=== PATIENT | female | born 1965 | race Caucasian/White ===

== ENCOUNTER 2017-02-24 14:15 | Emergency (ER) | payer OTHER, BC ==
[2017-02-24 14:19] VITALS: BP 146/81; PULSE 80; TEMP 98; BMI 37.5
--- NOTE | 2017-02-24 14:39 | PDOC ---
History of Present Illness - General Chief Complaint: Pain Stated Complaint: LEG PAIN Time Seen by Provider: 02/24/17 14:23 History Source: Patient Exam Limitations: No Limitations - History of Present Illness Initial Comments: 51 y/o afebrile female with PMH HTN, GERD c/o right leg pain. The patient states last night she woke up with a cramping/squeezing type of pain in her right front thigh. She states she wasn't sure if she should stretch it out but it was painful to extend her leg. She states it went away in a few minutes. She states she had a second episode this afternoon. She denies cough, hemoptysis, CP, SOB, calf pain, redness/warmth to affected leg, smoking history, recent travel, control use. Past History - Past Medical History Allergies/Adverse Reactions: Allergies Allergy/AdvReac Type Severity Reaction Status Date / Time No Known Drug Allergies Allergy Verified 02/24/17 14:18 Home Medications: Ambulatory Orders Omeprazole 40 mg PO DAILY 02/24/17 Valsartan 80 mg PO DAILY 02/24/17 Anemia: No Asthma: No Cancer: No Cardiac Disorders: No CVA: No COPD: No CHF: No Dementia: No Diabetes: No GI Disorders: Yes (REFLUX) Disorders: Yes (PROTEINURIA) HTN: Yes Hypercholesterolemia: No Liver Disease: No Seizures: No Thyroid Disease: No - Surgical History Abdominal Surgery: No Appendectomy: No Cardiac Surgery: No Cholecystectomy: Yes Lung Surgery: No Neurologic Surgery: No Orthopedic Surgery: Yes (RT ANKLE W/SCREWS-1985) - Psycho/Social/Smoking Cessation Hx Anxiety: No Suicidal Ideation: No Smoking History: Never smoked Hx Alcohol Use: No Drug/Substance Use Hx: No Substance Use Type: None Hx Substance Use Treatment: No Review of Systems - Review of Systems Able to Perform ROS?: Yes Constitutional: No: Symptoms Reported HEENTM: No: Symptoms Reported Respiratory: No: Symptoms reported Cardiac (ROS): No: Symptoms Reported Musculoskeletal: Yes: Muscle Pain (Right thigh pain) Integumentary: No: Symptoms Reported *Physical Exam - Vital Signs Last Vital Signs Temp Pulse Resp BP Pulse Ox 98.0 F 80 20 146/81 98 02/24/17 14:16 02/24/17 14:16 02/24/17 14:16 02/24/17 14:16 02/24/17 14:16 - Physical Exam General Appearance: Yes: Nourished, Other (Normal gait). No: Apparent Distress Respiratory/Chest: positive: Lungs Clear, Normal Breath Sounds. negative: Chest Tender, Respiratory Distress, Accessory Muscle Use, Labored Respiration Cardiovascular: positive: Regular Rhythm, Regular Rate Musculoskeletal: positive: Normal Inspection. negative: Decreased Range of Motion, Muscle Spasm Extremity: positive: Normal Capillary Refill, Normal Inspection, Normal Range of Motion, Tender (Pain reproduced with palpation of right vastus medialis muscle. No erythema, warmth, edema to affected area. No calf pain with palpation, erythema, warmth. Negative Avis's sign b/l. ). negative: Coldness , Cyanosis, Swelling, Calf Tenderness, Erythema, Inflammation Medical Decision Making - Medical Decision Making A/P: 51 y/o female with symptoms of muscle cramping/charley horse. I reassured her and suggested she stretch multiple times per day. I also suggested increase in her fluid intake, especially water. Provided her with precautions for symptoms of blood clots and suggested she return to the ER with any worsening or concerning symptoms. THe patient verbalizes understanding of all instructions, has no further questions and is awaiting discharge. *DC/Admit/Observation/Transfer Diagnosis at time of Disposition: Leg pain, right, Charleyhorse - Discharge Dispostion Disposition: HOME Condition at time of disposition: Good - Referrals Referrals: Mary Beth Kapadia MD [Primary Care Provider] - - Patient Instructions Printed Discharge Instructions: DI for Leg Pain, DI for Nocturnal Leg Cramps, Stretching Routine Before Bedtime May Decrease Nighttime Leg Cramps Additional Instructions: Discharge Instructions: -Drink at least 64oz of water daily -Stretch prior to going to bed -If you develop a cramp, stretch out the muscle and massage the muscle to help relieve the pain -Return to the ER with any worsening or concerning symptoms
== END 2017-02-24 14:45 | disposition home or self-care (01) ==
LOC: JERFT 14:15
DX: M62.831 Muscle spasm of calf (principal); K21.9 Gastro-esophageal reflux disease without esophagitis; I10 Essential (primary) hypertension
CPT/HCPCS: 99281-25

== ENCOUNTER 2018-12-16 04:43 | Day surgery (SDC) | payer OTHER, BC ==
[2018-12-14 14:53] VITALS: BMI 36.8
[2018-12-16] MEDS ORDERED: PROPOFOL 20 ML ONE (07:38)
[2018-12-16] MEDS ORDERED: fentaNYL CITRATE 250 MCG/5 ML VIAL ONE (07:38)
[2018-12-16] MEDS ORDERED: MIDAZOLAM HCL 2 MG/2 ML SINGLE DOSE VIAL ONE (07:39)
--- NOTE | 2018-12-16 07:48 | HP ---
History & Physical Update - Physical Physical: No Change - Assessment Assessment: No Change - Plan Plan: No Change (H&P reviwed, no cahanges. for hysteroscopy, D&C)
--- NOTE | 2018-12-16 08:13 | HP ---
Past Medical History - Primary Care Physician PCP:: Jason Duke - Admission Chief Complaint: irregular menses, EM polyp History of Present Illness: 52 yo f with hx of irregular menses , tvs , em polyp admitted for hysteroscopy, D&C polypectomy,risks and benefit of procedure discussed. History Source: Patient Limitations to Obtaining History: No Limitations - Past Medical History Cardiovascular: Yes: HTN - Past Surgical History Hx Transabdominal Cerclage: No - Smoking History Smoking history: Former smoker Have you smoked in the past 12 months: No If you are a former smoker, when did you quit?: 1994 - Alcohol/Substance Use Hx Alcohol Use: No - Social History Usual Living Arrangement: Yes: With Spouse Home Medications - Allergies Allergies/Adverse Reactions: Allergies Allergy/AdvReac Type Severity Reaction Status Date / Time atorvastatin AdvReac Verified 12/16/18 06:56 - Home Medications Home Medications: Ambulatory Orders Omeprazole 40 mg PO DAILY 02/24/17 L.acidoph,Paracasei, B.lactis [Probiotic] 1 each PO DAILY 12/14/18 Losartan Potassium [Cozaar] 100 mg PO DAILY 12/14/18 Ibuprofen [Motrin -] 600 mg PO TID #21 tablet 12/16/18 Review of Systems - Review of Systems Constitutional: reports: No Symptoms Eyes: reports: No Symptoms HENT: reports: No Symptoms Neck: reports: No Symptoms Cardiovascular: reports: No Symptoms Respiratory: reports: No Symptoms Gastrointestinal: reports: No Symptoms Genitourinary: reports: Vaginal Bleeding Breasts: reports: No Symptoms Reported Musculoskeletal: reports: No Symptoms Integumentary: reports: No Symptoms Neurological: reports: No Symptoms Endocrine: reports: No Symptoms Hematology/Lymphatic: reports: No Symptoms Psychiatric: reports: No Symptoms Physical Exam-[employer] Vital Signs: Vital Signs Temperature 97.6 F 12/16/18 06:44 Pulse Rate 74 12/16/18 06:44 Respiratory Rate 18 12/16/18 06:44 Blood Pressure 132/85 12/16/18 06:44 O2 Sat by Pulse Oximetry (%) 99 12/16/18 06:45 Constitutional: Yes: Well Nourished, No Distress, Calm Eyes: Yes: WNL, Conjunctiva Clear, EOM Intact HENT: Yes: WNL, Atraumatic, Normocephalic Neck: Yes: WNL, Supple, Trachea Midline Cardiovascular: Yes: WNL, Regular Rate and Rhythm Respiratory: Yes: WNL, Regular, CTA Bilaterally Gastrointestinal: Yes: WNL ...Rectal Exam: Yes: WNL Renal/: Yes: WNL Vaginal Exam: Yes: Normal Cervix: Yes: Normal Uterus: Yes: Normal Adnexa: Not Palpable: Left, Right Breast(s): Yes: WNL Musculoskeletal: Yes: WNL Extremities: Yes: WNL Integumentary: Yes: WNL Neurological: Yes: WNL, Alert, Oriented ...Motor Strength: WNL Psychiatric: Yes: WNL, Alert, Oriented Problem List - Problem (1) Metrorrhagia Code(s): N92.1 - EXCESSIVE AND FREQUENT MENSTRUATION WITH IRREGULAR CYCLE (2) Endometrial polyp Code(s): N84.0 - POLYP OF CORPUS UTERI Assessment/Plan hysteroscopy, EM polypectomy
[2018-12-16] MEDS ORDERED: ONDANSETRON 4 MG/2 ML VIAL IVPUSH PRN ×2 (08:45→08:56)
[2018-12-16] MEDS ORDERED: ELECTROLYTE-148 SOLN 1,000 ML IV SCH (08:45)
[2018-12-16] MEDS ORDERED: IBUPROFEN 600 MG TABLET (FP) PO PRN (08:45)
[2018-12-16] MEDS ORDERED: oxyCODONE HCL 5 MG TABLET PO PRN ×2 (08:45→08:56)
[2018-12-16] MEDS ORDERED: IBUPROFEN 800 MG/8 ML IJ IVPB PRN (08:45)
[2018-12-16] MEDS ORDERED: ACETAMINOPHEN 325 MG TABLET (FP) PO PRN (08:56)
[2018-12-16] MEDS ORDERED: LACTATED RINGERS SOLUTION 1,000 ML IV SCH (09:00)
[2018-12-16] MEDS ORDERED: ACETAMINOPHEN INJECTION 100 ML IVPB ONE (09:07)
[2018-12-16] MEDS ORDERED: ONDANSETRON 4 MG/2 ML VIAL ONE ×2 (09:15→11:12)
[2018-12-16] MEDS ORDERED: ACETAMINOPHEN 1000 MG/100 ML VIAL (NON FORMULARY) IVPB ONE (09:45)
[2018-12-16] MEDS ORDERED: ONDANSETRON 4 MG/2 ML VIAL IVPB ONE (11:20)
[2018-12-16 12:36] VITALS: PULSE 73; TEMP 97.9
[2018-12-16 12:38] VITALS: BP 130/70
--- NOTE | 2018-12-19 16:15 | PATH ---
Surgical Pathology Report Patient Name: GAURAV VALLEJO [facility]. Rec. #: [id number] /Age/Gender: 1965 (Age: 52) / F Account: [id number] Location: [facility] Taken: 12/16/2018 Received: 12/16/2018 Reported: 12/19/2018 Physicians: Jason Duke M.D. Specimen(s) Received A: ENDOMETRIAL CURETTINGS B: ENDOMETRIAL POLYP Clinical History Menorrhagia Final Diagnosis A. ENDOMETRIAL CURETTINGS: SIMPLE ENDOMETRIAL HYPERPLASIA WITHOUT ATYPIA. FOCAL STROMAL BREAKDOWN PRESENT. SEPARATE FRAGMENTS OF ENDOMETRIAL POLYP. SEPARATE PROLIFERATIVE ENDOMETRIUM. ENDOCERVICAL TISSUE WITH SQUAMOUS METAPLASIA. B. ENDOMETRIAL POLYP, EXCISION: SIMPLE ENDOMETRIAL HYPERPLASIA WITHOUT ATYPIA. FRAGMENTS OF ENDOMETRIAL POLYP. SEPARATE PROLIFERATIVE ENDOMETRIUM. Electronically Signed Chad Silva M.D. Gross Description A. Received in formalin labeled "endometrial curettings," is a 4.5 x 4.0 x 0.3 cm aggregate of boateng red soft tissue fragments admixed with blood clot. The formalin is filtered and the specimen is entirely submitted in 4 cassettes. B. Received in formalin labeled "endometrial polyp," is a 2.0 x 1.5 x 0.3 cm aggregate of pink-boateng, irregular to polypoid portions of soft tissue. The specimen is submitted in toto in one cassette. 12/16/201812/16/2018
--- NOTE | 2018-12-20 15:33 | OP ---
DATE OF OPERATION: 12/16/2018 PREOPERATIVE DIAGNOSIS: Menorrhagia, endometrial polyp. POSTOPERATIVE DIAGNOSIS: Menorrhagia, endometrial polyp. PROCEDURE: Hysteroscopy, dilation and curettage, and polypectomy. SURGEON: Jason Duke MD ANESTHESIA: General. ESTIMATED BLOOD LOSS: About 60 mL. DESCRIPTION OF PROCEDURE: The patient was taken to the operating room. Under adequate general anesthesia, examination under anesthesia revealed external genitalia to be normal. Vagina was normal. Cervix was clean. No gross lesion. Uterus was prominent and enlarged. No adnexal masses were palpable. Then with a weighted speculum in the vagina, anterior lip of the cervix was grasped with a single-tooth tenaculum. Uterine cavity was sounded to 10 cm. Then the cervix was slightly dilated and hysteroscope was introduced. Visualization of the endocervical canal appeared to be normal. Endometrium appeared to be irregular with a polyp, which was seen in the fundal area of the uterus. The rest of the endometrium was patchy and irregular and hypertrophic. No other abnormality was seen. Both cornual regions were identified. Then polyp was removed. Then hysteroscope was withdrawn. Endometrium was curetted. Large amounts of tissue were obtained. The patient tolerated the procedure well and left the OR in good condition. Micheline [id number]
== END 2018-12-16 12:25 | disposition home or self-care (01) ==
LOC: JASU-SURG 04:43
PROVIDERS: ATTEND Obstetrics & Gynecology
PROC: 0UJD8ZZ Inspection of Uterus and Cervix, Via Natural or Artificial Opening Endoscopic (ICD-10-PCS; 2018-12-16)
PROC: 0UB97ZX Excision of Uterus, Via Natural or Artificial Opening, Diagnostic (ICD-10-PCS; principal; 2018-12-16 08:00)
PROC: 0UDB7ZX Extraction of Endometrium, Via Natural or Artificial Opening, Diagnostic (ICD-10-PCS; 2018-12-16 08:00)
DX: N92.0 Excessive and frequent menstruation with regular cycle (principal); N84.0 Polyp of corpus uteri
CPT/HCPCS: 84703; 88305-TC; 94760; J0131

== ENCOUNTER 2020-07-30 04:40 | Day surgery (SDC) | payer OTHER, BC ==
[2020-07-29 13:06] VITALS: BMI 37.2
[2020-07-30] MEDS ORDERED: MIDAZOLAM HCL 2 MG/2 ML SINGLE DOSE VIAL ONE (08:33)
[2020-07-30] MEDS ORDERED: oxyCODONE HCL 5 MG TABLET PO PRN ×2 (08:45→10:12)
[2020-07-30] MEDS ORDERED: ONDANSETRON 4 MG/2 ML VIAL IVPUSH PRN ×2 (08:45→10:12)
[2020-07-30] MEDS ORDERED: LACTATED RINGERS SOLUTION 1,000 ML IV SCH (08:45)
[2020-07-30] MEDS ORDERED: IBUPROFEN 800 MG/8 ML IJ IVPB PRN (10:12)
[2020-07-30] MEDS ORDERED: IBUPROFEN 600 MG TABLET (FP) PO PRN (10:12)
[2020-07-30] MEDS ORDERED: ELECTROLYTE-148 SOLN 1,000 ML IV SCH (10:15)
[2020-07-30 12:25] VITALS: BP 127/79; PULSE 68; TEMP 97.1
== END 2020-07-30 11:55 | disposition home or self-care (01) ==
LOC: JASU-SURG 04:40
PROVIDERS: ATTEND Obstetrics & Gynecology
PROC: 0UJD8ZZ Inspection of Uterus and Cervix, Via Natural or Artificial Opening Endoscopic (ICD-10-PCS; 2020-07-30)
PROC: 0UB97ZX Excision of Uterus, Via Natural or Artificial Opening, Diagnostic (ICD-10-PCS; principal; 2020-07-30 09:00)
PROC: 0UDB7ZX Extraction of Endometrium, Via Natural or Artificial Opening, Diagnostic (ICD-10-PCS; 2020-07-30 09:00)
DX: N95.0 Postmenopausal bleeding (principal); N84.0 Polyp of corpus uteri
CPT/HCPCS: 84703; 86850; 86900; 86901; 88305-TC; 94760

== ENCOUNTER 2023-10-18 16:48 | Observation (INO) | payer OTHER, BC ==
[2023-10-18] MEDS: LACTATED RINGERS SOLUTION 1000 ML INFUS.BAG IV ONE (21:22)
[2023-10-18 21:25] LABS: BASO % 0.9 % (0-2.0); EOS % 2.5 % (0-4.5); HEMATOCRIT 38.7 % (32.4-45.2); HEMOGLOBIN 12.7 GM/dL (10.7-15.3); LYMPH % 35.4 % (8-40); MCH 28.2 pg (25.7-33.7); MCHC 32.7 g/dl (32.0-36.0); MEAN CELL VOLUME 86.3 fl (80-96); MEAN PLT VOLUME 8.1 fl (7.5-11.1); MONO % 7.6 % (3.8-10.2); NEUT % 53.6 % (42.8-82.8); PLATELET COUNT 286 10^3/uL (134-434); RBC 4.49 M/mm3 (3.60-5.2); RDW 15.5 % (11.6-15.6); WHITE BLOOD COUNT 7.1 K/mm3 (4.0-10.0)
[2023-10-18 21:33] LABS: INR 1.04 (0.83-1.09); PROTHROMBIN TIME (PATIENT) 12.1 SEC (9.7-13.0)
[2023-10-18 21:36] LABS: ACTIVATED PTT 30.5 SECONDS (25.2-36.5)
[2023-10-18 21:44] LABS: POTASSIUM 4.4 mmol/L (3.5-5.1)
[2023-10-18 21:45] LABS: CALCIUM 9.3 mg/dL (8.5-10.1)
[2023-10-18 21:47] LABS: BLOOD UREA NITROGEN 27.6 mg/dL (7-18)
[2023-10-18 21:48] LABS: CREATININE 1.8 mg/dL (0.55-1.3)
[2023-10-18 21:50] LABS: BILIRUBIN,TOTAL 0.5 mg/dL (0.2-1); TOT PROT 6.7 g/dl (6.4-8.2)
[2023-10-19] MEDS ORDERED: DOCUSATE SODIUM 100 MG CAPSULE (FP) PO PRN (00:49)
[2023-10-19] MEDS ORDERED: APIXABAN 5 MG TABLET ONE (01:29)
[2023-10-19] MEDS: APIXABAN 5 MG TABLET PO ONE ×2 (01:44→21:28)
[2023-10-19] MEDS: SODIUM CHLORIDE 0.45% 1,000 ML IV SCH (01:44)
[2023-10-19 06:24] VITALS: RESP 18; BMI 34.5
[2023-10-19] MEDS: LACTATED RINGERS SOLUTION 1000 ML INFUS.BAG IV ONE (07:47)
[2023-10-19] MEDS: ALLOPURINOL 100 MG TABLET (FP) PO SCH (09:36)
[2023-10-19] MEDS: LOSARTAN POTASSIUM 50 MG TABLET PO SCH (09:36)
[2023-10-19 11:55] LABS: BASO % 0.7 % (0-2.0); HEMATOCRIT 33.5 % (32.4-45.2); HEMOGLOBIN 11.4 GM/dL (10.7-15.3); LYMPH % 30.1 % (8-40); MCH 29.3 pg (25.7-33.7); MEAN CELL VOLUME 86.2 fl (80-96); MEAN PLT VOLUME 8.2 fl (7.5-11.1); MONO % 8.3 % (3.8-10.2); NEUT % 56.9 % (42.8-82.8); PLATELET COUNT 261 10^3/uL (134-434); RBC 3.89 M/mm3 (3.60-5.2); RDW 15.1 % (11.6-15.6); WHITE BLOOD COUNT 5.5 K/mm3 (4.0-10.0)
[2023-10-19 12:24] LABS: POTASSIUM 4.3 mmol/L (3.5-5.1)
[2023-10-19 12:25] LABS: ALBUMIN 2.6 g/dl (3.4-5.0); CALCIUM 8.8 mg/dL (8.5-10.1)
[2023-10-19 12:27] LABS: BLOOD UREA NITROGEN 24.2 mg/dL (7-18)
[2023-10-19 12:28] LABS: CREATININE 1.5 mg/dL (0.55-1.3)
[2023-10-19 12:30] LABS: BILIRUBIN,TOTAL 0.6 mg/dL (0.2-1)
[2023-10-19 12:31] LABS: TOT PROT 5.6 g/dl (6.4-8.2)
[2023-10-19 12:33] LABS: N-TERMINAL BNP 165.4 pg/ml (5-125)
[2023-10-19] MEDS: ACETAMINOPHEN 1000 MG/100 ML BAG IVPB PRN (21:29)
[2023-10-20] MEDS ORDERED: ACETAMINOPHEN 325 MG TABLET (FP) PO PRN (00:49)
[2023-10-20 07:16] LABS: BASO % 0.8 % (0-2.0); EOS % 4.6 % (0-4.5); HEMATOCRIT 32.3 % (32.4-45.2); HEMOGLOBIN 10.5 GM/dL (10.7-15.3); LYMPH % 31.2 % (8-40); MCH 28.4 pg (25.7-33.7); MCHC 32.5 g/dl (32.0-36.0); MEAN CELL VOLUME 87.4 fl (80-96); MONO % 9.8 % (3.8-10.2); NEUT % 53.6 % (42.8-82.8); PLATELET COUNT 237 10^3/uL (134-434); RBC 3.69 M/mm3 (3.60-5.2); RDW 15.4 % (11.6-15.6); WHITE BLOOD COUNT 4.9 K/mm3 (4.0-10.0)
[2023-10-20 07:34] LABS: POTASSIUM 4.8 mmol/L (3.5-5.1)
[2023-10-20 07:48] LABS: CALCIUM 8.5 mg/dL (8.5-10.1)
[2023-10-20 07:49] LABS: ALBUMIN 2.3 g/dl (3.4-5.0); BLOOD UREA NITROGEN 24.6 mg/dL (7-18); MAGNESIUM 2.1 mg/dL (1.8-2.4)
[2023-10-20 07:51] LABS: PHOSPHOROUS 3.8 mg/dL (2.5-4.9); URIC ACID 6.5 mg/dL (2.6-7.2)
[2023-10-20 07:52] LABS: CREATININE 1.5 mg/dL (0.55-1.3)
[2023-10-20 07:53] LABS: BILIRUBIN,TOTAL 0.4 mg/dL (0.2-1); TOT PROT 5.2 g/dl (6.4-8.2)
[2023-10-20 10:18] LABS: EPI CELLS 13 /uL (0-25.1); HYALINE CASTS 0 /uL (0-3.1); PH,URINE 5.5 (5.0-8.0); URINE APPEARANCE CLEAR; URINE BACTERIA 197 /uL (0-1359); URINE BILIRUBIN NEGATIVE (NEGATIVE); URINE COLOR YELLOW; URINE GLUCOSE (UA) NEGATIVE (NEGATIVE); URINE KETONE NEGATIVE (NEGATIVE); URINE LEUK ESTERASE NEGATIVE (NEGATIVE); URINE NITRITE NEGATIVE (NEGATIVE); URINE PROTEIN 3+ (NEGATIVE); URINE RBC 38 /uL (0-23.9); URINE UROBILINOGEN 0.2 mg/dL (0.2-1.0); URINE WBC 7 /uL (0-25.8)
[2023-10-20] MEDS: APIXABAN 5 MG TABLET PO SCH (10:52)
[2023-10-20] MEDS: PANTOPRAZOLE 40 MG TABLET PO SCH (10:53)
[2023-10-20 17:50] VITALS: BP 158/85; PULSE 80; TEMP 97.9
[2023-10-20] MEDS ORDERED: FERROUS SO4 325 MG TABLET (FP) PO SCH (22:00)
== END 2023-10-20 18:23 | disposition home or self-care (01) ==
LOC: JER 16:48 → JERBED 10-19 00:43 → J4W 10-19 06:18
PROVIDERS: ADMIT Internal Medicine; ATTEND Nurse Practitioner Acute Care
PROC: 3E033NZ Introduction of Analgesics, Hypnotics, Sedatives into Peripheral Vein, Percutaneous Approach (ICD-10-PCS; principal; 2023-10-19)
PROC: 3E0337Z Introduction of Electrolytic and Water Balance Substance into Peripheral Vein, Percutaneous Approach (ICD-10-PCS; 2023-10-19)
DX: I82.4Z2 Acute embolism and thrombosis of unspecified deep veins of left distal lower extremity (principal); R60.0 Localized edema; M06.9 Rheumatoid arthritis, unspecified; N28.9 Disorder of kidney and ureter, unspecified; N17.9 Acute kidney failure, unspecified; Z29.89 Encounter for other specified prophylactic measures; Z87.891 Personal history of nicotine dependence; Z88.8 Allergy status to other drugs, medicaments and biological substances
CPT/HCPCS: 36415; 71045-TC-FY; 78582-TC; 80048; 80053; 81003; 82570; 83735; 83880; 84100; 84156; 84484; 84550; 85025; 85379; 85610; 85730; 86850; 86900; 86901; 87635; 93005; 93010; 93306-TC; 96361; 96374; 99285-25; A9539; A9540; G0378; J0131

== ENCOUNTER 2024-03-21 08:02 | Emergency (ER) | payer OTHER, BC ==
[2024-03-21 08:37] VITALS: TEMP 98; BMI 35.2
[2024-03-21] MEDS ORDERED: ACETAMINOPHEN 325 MG TABLET (FP) ONE (09:09)
[2024-03-21] MEDS ORDERED: ONDANSETRON *ODT* 4 MG TABLET ONE (09:09)
[2024-03-21] MEDS: ONDANSETRON *ODT* 4 MG TABLET SL ONE (09:15)
[2024-03-21] MEDS: ONDANSETRON 4 MG/2 ML VIAL IVPB ONE (09:16)
[2024-03-21] MEDS: ACETAMINOPHEN 500 MG TABLET (FP) PO ONE (09:51)
[2024-03-21] MEDS ORDERED: KETAMINE HCL 200 MG/20 ML VIAL ONE ×2 (12:52→14:40)
[2024-03-21] MEDS ORDERED: KETOROLAC TROMETHAMINE 30 MG/1 ML VIAL ONE (12:52)
[2024-03-21] MEDS: KETOROLAC TROMETHAMINE 30 MG/1 ML VIAL IVPUSH ONE (12:55)
[2024-03-21] MEDS: KETAMINE HCL 200 MG/20 ML VIAL IVPUSH ONE ×3 (13:32→14:44)
[2024-03-21 14:40] LABS: BASO % 0.4 % (0-2.0); EOS % 0.1 % (0-4.5); HEMATOCRIT 41.8 % (32.4-45.2); HEMOGLOBIN 13.4 GM/dL (10.7-15.3); LYMPH % 7.8 % (8-40); MCH 28.9 pg (25.7-33.7); MCHC 32.1 g/dl (32.0-36.0); MEAN PLT VOLUME 8.6 fl (7.5-11.1); NEUT % 85.7 % (42.8-82.8); PLATELET COUNT 226 10^3/uL (134-434); RBC 4.65 M/mm3 (3.60-5.2); RDW 15.4 % (11.6-15.6); WHITE BLOOD COUNT 13.1 K/mm3 (4.0-10.0)
[2024-03-21 14:47] LABS: INR 0.98 (0.83-1.09); PROTHROMBIN TIME (PATIENT) 11.3 SEC (9.7-13.0)
[2024-03-21 14:49] LABS: ACTIVATED PTT 30.4 SECONDS (25.2-36.5)
[2024-03-21] MEDS ORDERED: PROPOFOL 20 ML ONE (14:54)
[2024-03-21 15:00] LABS: POTASSIUM 5.3 mmol/L (3.5-5.1)
[2024-03-21 15:02] LABS: CALCIUM 9.6 mg/dL (8.5-10.1)
[2024-03-21 15:03] LABS: ALBUMIN 3.3 g/dl (3.4-5.0); BLOOD UREA NITROGEN 38.3 mg/dL (7-18)
[2024-03-21 15:08] LABS: BILIRUBIN,TOTAL 0.4 mg/dL (0.2-1); TOT PROT 6.5 g/dl (6.4-8.2)
[2024-03-21] MEDS: PROPOFOL 200 MG/20 ML VIAL IVPUSH ONE (15:46)
[2024-03-21 16:11] VITALS: BP 156/81; PULSE 91; RESP 21
== END 2024-03-21 18:49 | disposition home or self-care (01) ==
LOC: JER 08:02
PROC: 3E0333Z Introduction of Anti-inflammatory into Peripheral Vein, Percutaneous Approach (ICD-10-PCS; principal; 2024-03-21)
DX: S42.92XA Fracture of left shoulder girdle, part unspecified, initial encounter for closed fracture (principal); S09.90XA Unspecified injury of head, initial encounter; R11.0 Nausea; W10.8XXA Fall (on) (from) other stairs and steps, initial encounter
CPT/HCPCS: 36415; 70450-TC; 73030-TC-LT-FY; 73200-TC-RT; 80053; 85025; 85610; 85730; 86850; 86900; 86901; 93005; 93010; 99285-25; Q0162